=== PATIENT | female | born 1975 | race Caucasian/White ===

== ENCOUNTER 2017-02-05 00:48 | Emergency (ER) | payer SELFPAY ==
[~2017-02-05] VITALS: Ht 154.9 cm; Wt 72.0 kg
[~2017-02-05 00:48] MED LIST: ALBU0.63 NEB; CEFD300C2 PO; DOXY100T PO; PRED20TA PO
[2017-02-05 03:54] VITALS: BP 131/73
[2017-02-05] MEDS ORDERED: GABAPENTIN 100 MG CAPSULE PO ONE (04:00)
== END 2017-02-05 04:37 | disposition home or self-care (01) ==
LOC: ED 01:45
DX: G62.9 Polyneuropathy, unspecified (principal); F10.20 Alcohol dependence, uncomplicated
CPT/HCPCS: 71010; 99283

== ENCOUNTER 2017-02-05 21:22 | Emergency (ER) | payer SELFPAY ==
[~2017-02-05] VITALS: Ht 180.3 cm; Wt 73.3 kg
[2017-02-05 23:20] LABS: BLOOD UREA NITROGEN 16 mg/dL (7-18)
[2017-02-05 23:38] LABS: IS PT STATUS REG ER OR PRE ER? YES
[2017-02-06 01:37] VITALS: BP 112/58
== END 2017-02-06 02:02 | disposition home or self-care (01) ==
LOC: ED 23:59
DX: R55 Syncope and collapse (principal); J45.909 Unspecified asthma, uncomplicated; Z87.01 Personal history of pneumonia (recurrent)
CPT/HCPCS: 36415; 80048; 82040; 84484; 85025; 93005

== ENCOUNTER 2017-02-06 20:42 | Emergency (ER) | payer SELFPAY ==
[~2017-02-06] VITALS: Ht 180.3 cm; Wt 71.1 kg
[2017-02-06] MEDS ORDERED: SODIUM CHLORIDE FLUSH 10ML SYR IVF ONE (22:00)
[2017-02-06] MEDS ORDERED: OMNIPAQUE 350 MG/ML, 100ML BOTTLE ONE (22:18)
[2017-02-06 22:33] VITALS: BP 136/95
== END 2017-02-06 22:34 | disposition home or self-care (01) ==
LOC: ED 21:21
DX: R55 Syncope and collapse (principal); Z59.0 Homelessness
CPT/HCPCS: 70450; 71275; 93005; 99284; Q9967

== ENCOUNTER 2017-02-07 22:59 | Emergency (ER) | payer SELFPAY ==
[~2017-02-07] VITALS: Ht 180.3 cm; Wt 73.1 kg
[2017-02-07 23:07] VITALS: BP 124/84
== END 2017-02-08 00:59 | disposition home or self-care (01) ==
LOC: ED 23:59
DX: R55 Syncope and collapse (principal)
CPT/HCPCS: 36415; 80047; 93005

== ENCOUNTER 2017-02-16 16:21 | Emergency (ER) | payer SELFPAY ==
[~2017-02-16] VITALS: Ht 180.3 cm; Wt 74.0 kg
[~2017-02-16 16:21] MED LIST changes: -CEFD300C2 PO; +CEFD300C37 PO
[2017-02-16] MEDS ORDERED: SODIUM CHLORIDE FLUSH 10ML SYR IVF ONE (17:00)
[2017-02-16] MEDS ORDERED: MECLIZINE CHEWABLE 25 MG TAB PO ONE (17:00)
[2017-02-16] MEDS ORDERED: SODIUM CHLORIDE 0.9% 1,000ML IVBOLUS ONE (17:00)
[2017-02-16 17:28] LABS: ASPARTATE AMINO TRANSFERASE 29 U/L (15-37); BLOOD UREA NITROGEN 13 mg/dL (7-18)
[2017-02-16 17:37] LABS: IS PT STATUS REG ER OR PRE ER? YES
[2017-02-16] MEDS ORDERED: ALBUTEROL/IPRATROPIUM 2.5MG/0.5MG, 3 ML ONE ×2 (18:28→19:49)
[2017-02-16] MEDS ORDERED: ALBUTEROL/IPRATROPIUM 2.5MG/0.5MG, 3 ML NPPB ONE ×2 (18:30→19:30)
[2017-02-16] MEDS ORDERED: MECLIZINE CHEWABLE 25 MG TAB ONE (18:43)
[2017-02-16 20:16] VITALS: BP 124/75
== END 2017-02-16 20:21 | disposition home or self-care (01) ==
LOC: ED 20:15
DX: R42 Dizziness and giddiness (principal); J45.41 Moderate persistent asthma with (acute) exacerbation
CPT/HCPCS: 36415; 71020; 80053; 84484; 84703; 85025; 93005; 94640; 96361; 99285; J7030; J7512; J7620

== ENCOUNTER 2017-02-18 19:04 | Emergency (ER) | payer SELFPAY ==
[~2017-02-18] VITALS: Ht 180.3 cm; Wt 74.7 kg
[2017-02-18] MEDS ORDERED: SODIUM CHLORIDE 0.9% 1,000ML IVBOLUS ONE (19:30)
[2017-02-18] MEDS ORDERED: DIPH25CA61 PO (19:46)
[2017-02-18 20:05] VITALS: BP 97/64
== END 2017-02-18 20:07 | disposition home or self-care (01) ==
LOC: ED 19:30
DX: R55 Syncope and collapse (principal); J45.909 Unspecified asthma, uncomplicated
CPT/HCPCS: 93005; 99283

== ENCOUNTER 2017-02-20 21:22 | Emergency (ER) | payer SELFPAY ==
[~2017-02-20] VITALS: Ht 180.3 cm; Wt 72.8 kg
[~2017-02-20 21:22] MED LIST changes: +DIPH25CA61 PO
[2017-02-20 22:11] VITALS: BP 139/86
[2017-02-20] MEDS ORDERED: LORazepam 2 MG/ML, 1ML IVPush ONE (22:30)
[2017-02-20] MEDS ORDERED: METOCLOPRAMIDE 5 MG/ML, 2ML IVPush ONE (22:30)
[2017-02-20] MEDS ORDERED: ONDANSETRON 2MG/ML, 2ML IVPush ONE (22:30)
[2017-02-20] MEDS ORDERED: SODIUM CHLORIDE 0.9% 1,000ML IVBOLUS ONE (22:30)
[2017-02-20] MEDS ORDERED: SODIUM CHLORIDE FLUSH 10ML SYR IVF ONE (22:30)
[2017-02-20 22:31] LABS: BLOOD UREA NITROGEN 15 mg/dL (7-18)
[2017-02-20 22:37] LABS: ASPARTATE AMINO TRANSFERASE 33 U/L (15-37)
[2017-02-20 22:58] LABS: PATH.CAST-FLAG NOT PRESENT; SPERM-FLAG NOT PRESENT; SRC-FLAG NOT PRESENT; XTAL-FLAG NOT PRESENT; YLC-FLAG NOT PRESENT
== END 2017-02-20 23:55 | disposition left against medical advice (07) ==
LOC: ED 23:49
DX: F10.220 Alcohol dependence with intoxication, uncomplicated (principal); N30.00 Acute cystitis without hematuria
CPT/HCPCS: 36415; 80053; 80307; 81001; 83690; 84703; 85025; 87086; 99284

== ENCOUNTER 2017-02-26 01:04 | Emergency (ER) | payer SELFPAY ==
[~2017-02-26] VITALS: Ht 180.3 cm; Wt 70.5 kg
[2017-02-26 01:07] VITALS: BP 123/78
[2017-02-26] MEDS ORDERED: KETOROLAC 30 MG/1 ML IM ONE (02:00)
[2017-02-26] MEDS ORDERED: KETOROLAC 30 MG/1 ML ONE (02:10)
[2017-02-27] MEDS ORDERED: ALBU18HF INH (00:19)
[2017-02-27] MEDS ORDERED: BECL8.7A5 INH (00:20)
== END 2017-02-26 02:43 | disposition home or self-care (01) ==
LOC: ED 01:48
DX: Z00.00 Encounter for general adult medical examination without abnormal findings (principal)
CPT/HCPCS: 96372; 99283; J1885

== ENCOUNTER 2017-02-26 23:56 | Emergency (ER) | payer SELFPAY ==
[~2017-02-26] VITALS: Ht 177.8 cm; Wt 69.4 kg
[2017-02-26 23:58] VITALS: BP 119/80
[2017-02-27] MEDS ORDERED: ALBU18HF INH (00:19)
[2017-02-27] MEDS ORDERED: BECL8.7A5 INH (00:20)
[2017-02-27] MEDS ORDERED: ONDANSETRON ODT 4 MG ONE (00:35)
[2017-02-27] MEDS ORDERED: MAALOX/HYOSCYAMINE/LIDOCAINE 45 ML BOTTLE ONE (00:38)
[2017-02-27] MEDS ORDERED: MAALOX/HYOSCYAMINE/LIDOCAINE 45 ML BOTTLE PO ONE (01:00)
[2017-02-27] MEDS ORDERED: ALBUTEROL/IPRATROPIUM 2.5MG/0.5MG, 3 ML NPPB ONE (01:00)
[2017-02-27] MEDS ORDERED: SODIUM CHLORIDE 0.9% 1,000ML IVBOLUS ONE (01:00)
[2017-02-27] MEDS ORDERED: ONDANSETRON 2MG/ML, 2ML IVPush ONE (01:00)
[2017-02-27 01:01] LABS: ASPARTATE AMINO TRANSFERASE 35 U/L (15-37); BLOOD UREA NITROGEN 15 mg/dL (7-18)
== END 2017-02-27 01:56 | disposition home or self-care (01) ==
LOC: ED 23:59
DX: R19.7 Diarrhea, unspecified (principal); E86.9 Volume depletion, unspecified; E86.0 Dehydration
CPT/HCPCS: 36415; 80053; 85025; 94640; 96361; 96374; 99284; J2405; J7030; J7620

== ENCOUNTER 2017-03-01 03:14 | Emergency (ER) | payer SELFPAY ==
[~2017-03-01] VITALS: Ht 180.3 cm; Wt 73.6 kg
[~2017-03-01 03:14] MED LIST changes: +ALBU18HF INH; +BECL8.7A5 INH
[2017-03-01] MEDS ORDERED: ALBUTEROL SULFATE 2.5 MG/3 ML ONE (03:50)
[2017-03-01] MEDS ORDERED: SODIUM CHLORIDE 0.9% 1,000ML IVBOLUS ONE (04:00)
[2017-03-01] MEDS ORDERED: ALBUTEROL SULFATE 2.5 MG/3 ML NPPB ONE (04:00)
[2017-03-01 04:22] LABS: ASPARTATE AMINO TRANSFERASE 20 U/L (15-37); BLOOD UREA NITROGEN 10 mg/dL (7-18)
[2017-03-01 05:32] VITALS: BP 123/86
== END 2017-03-01 05:34 | disposition home or self-care (01) ==
LOC: ED 05:28
DX: J45.31 Mild persistent asthma with (acute) exacerbation (principal); R10.9 Unspecified abdominal pain
CPT/HCPCS: 36415; 71010; 80053; 81001; 83690; 85025; 94640; 99285; J7030; J7613

== ENCOUNTER 2017-03-03 03:32 | Emergency (ER) | payer SELFPAY ==
[~2017-03-03] VITALS: Ht 180.3 cm; Wt 72.1 kg
[2017-03-03 03:35] VITALS: BP 132/79
== END 2017-03-03 04:20 | disposition left against medical advice (07) ==
LOC: ED 04:15
DX: R07.89 Other chest pain (principal); Z53.21 Procedure and treatment not carried out due to patient leaving prior to being seen by health care provider

== ENCOUNTER 2017-03-18 22:40 | Emergency (ER) | payer SELFPAY ==
[~2017-03-18] VITALS: Ht 180.3 cm; Wt 71.8 kg
[2017-03-19] MEDS ORDERED: ONDANSETRON 2MG/ML, 2ML ONE (02:40)
[2017-03-19] MEDS ORDERED: SODIUM CHLORIDE 0.9% 1,000ML IVBOLUS ONE ×2 (03:00→04:00)
[2017-03-19] MEDS ORDERED: ONDANSETRON 2MG/ML, 2ML IVPush ONE (03:00)
[2017-03-19 03:09] LABS: ASPARTATE AMINO TRANSFERASE 43 U/L (15-37); BLOOD UREA NITROGEN 12 mg/dL (7-18)
[2017-03-19] MEDS ORDERED: POTASSIUM CHLORIDE 20 MEQ TAB.ER.PRT ONE (03:51)
[2017-03-19] MEDS ORDERED: POTASSIUM CHLORIDE 20 MEQ TAB.ER.PRT PO ONE (04:00)
[2017-03-19 05:00] VITALS: BP 124/80
== END 2017-03-19 05:05 | disposition home or self-care (01) ==
LOC: ED 23:59
DX: E86.0 Dehydration (principal); E87.6 Hypokalemia; R11.2 Nausea with vomiting, unspecified; R19.7 Diarrhea, unspecified; J45.909 Unspecified asthma, uncomplicated
CPT/HCPCS: 36415; 80053; 83690; 85025; 96361; 96374; 99285; J2405; J7030

== ENCOUNTER 2017-03-21 01:41 | Emergency (ER) | payer SELFPAY ==
[~2017-03-21] VITALS: Ht 180.3 cm; Wt 72.3 kg
[2017-03-21 01:42] VITALS: BP 148/96
[2017-03-21] MEDS ORDERED: ONDANSETRON ODT 4 MG ONE (02:23)
[2017-03-21] MEDS ORDERED: ACETAMINOPHEN 325 MG TABLET ONE (02:23)
[2017-03-21] MEDS ORDERED: ACETAMINOPHEN 325 MG TABLET PO ONE (02:30)
[2017-03-21] MEDS ORDERED: ONDANSETRON ODT 4 MG PO ONE (02:30)
== END 2017-03-21 02:40 | disposition home or self-care (01) ==
LOC: ED 02:17
DX: R11.2 Nausea with vomiting, unspecified (principal); R10.84 Generalized abdominal pain
CPT/HCPCS: 99283; Q0162

== ENCOUNTER 2017-03-23 23:12 | Emergency (ER) | payer SELFPAY ==
[~2017-03-23] VITALS: Ht 180.3 cm; Wt 70.4 kg
[2017-03-24] MEDS ORDERED: SODIUM CHLORIDE FLUSH 10ML SYR IVF ONE
[2017-03-24] MEDS ORDERED: ONDANSETRON 2MG/ML, 2ML IVPush ONE
[2017-03-24] MEDS ORDERED: ONDANSETRON 2MG/ML, 2ML ONE (00:03)
[2017-03-24 00:12] LABS: ASPARTATE AMINO TRANSFERASE 55 U/L (15-37); BLOOD UREA NITROGEN 6 mg/dL (7-18)
[2017-03-24 00:39] LABS: DIFF TOTAL CELLS COUNTED 100 CELL DIFF
[2017-03-24 00:48] LABS: VERIFY COUNTS? YES
[2017-03-24] MEDS ORDERED: SODIUM CHLORIDE 0.9% 1,000ML IVBOLUS ONE ×2 (01:00)
[2017-03-24 02:12] VITALS: BP 100/63
== END 2017-03-24 02:32 | disposition home or self-care (01) ==
LOC: ED 23:21
DX: R10.84 Generalized abdominal pain (principal); R11.2 Nausea with vomiting, unspecified; E86.0 Dehydration; G89.29 Other chronic pain; J45.909 Unspecified asthma, uncomplicated; F17.200 Nicotine dependence, unspecified, uncomplicated
CPT/HCPCS: 36415; 80053; 83690; 84703; 85025; 96361; 96374; 99285; J2405; J7030

== ENCOUNTER 2017-04-02 23:29 | Emergency (ER) | payer SELFPAY ==
[~2017-04-02] VITALS: Ht 180.3 cm; Wt 68.3 kg
[~2017-04-02 23:29] MED LIST changes: +AMOX1TAB64 PO; +LACT1CAP24 PO
[2017-04-03 00:39] LABS: ASPARTATE AMINO TRANSFERASE 32 U/L (15-37); BLOOD UREA NITROGEN 18 mg/dL (7-18)
[2017-04-03 01:22] VITALS: BP 93/53
== END 2017-04-03 01:31 | disposition home or self-care (01) ==
LOC: ED 23:59
DX: R10.84 Generalized abdominal pain (principal); R53.1 Weakness; R11.0 Nausea; F17.200 Nicotine dependence, unspecified, uncomplicated; J45.909 Unspecified asthma, uncomplicated
CPT/HCPCS: 36415; 80053; 83690; 85025; 99284

== ENCOUNTER 2017-10-11 09:53 | Inpatient (IN) | payer OTHER ==
[~2017-10-11] VITALS: Ht 180.3 cm; Wt 71.0 kg
[~2017-10-11 09:53] MED LIST changes: -BECL8.7A5 INH; +BECL8.7A7 INH
[2017-10-11] MEDS ORDERED: MAGNESIUM SULFATE PMX 2GM/50ML 50 ML IVPB ONE (10:00)
[2017-10-11] MEDS ORDERED: SODIUM CHLORIDE 0.9% 1,000ML IVBOLUS ONE (10:00)
[2017-10-11] MEDS ORDERED: SODIUM CHLORIDE FLUSH 10ML SYR IVF ONE (10:00)
[2017-10-11] MEDS ORDERED: methylPREDNISolone SOD SUCC 125 MG/2 ML ONE (10:10)
[2017-10-11] MEDS ORDERED: IBUPROFEN 200 MG TABLET ONE (10:15)
[2017-10-11 10:30] LABS: MEAN CORPUSCULAR HEMOGLOBIN 30.4 pg (27.0-34.8); MEAN CORPUSCULAR HGB CONC 33.2 g/dL (32.4-35.8); MEAN CORPUSCULAR VOLUME 91.4 fL (80-100); MEAN PLATELET VOLUME 8.4 fL (7.4-10.4); PLATELET COUNT 294 x10^3/uL (130-400); RED CELL DISTRIBUTION WIDTH 14.2 % (9.6-15.2)
[2017-10-11] MEDS ORDERED: MOME13HF2 INH (10:30)
[2017-10-11] MEDS ORDERED: DIPH25CA61 PO (10:30)
[2017-10-11] MEDS ORDERED: ALBU0.63 NEB (10:30)
[2017-10-11] MEDS ORDERED: methylPREDNISolone SOD SUCC 125 MG/2 ML IVP ONE (10:30)
[2017-10-11] MEDS ORDERED: IBUPROFEN 200 MG TABLET PO ONE (10:30)
[2017-10-11] MEDS ORDERED: ALBUTEROL/IPRATROPIUM 2.5MG/0.5MG, 3 ML ONE ×2 (10:34→10:57)
[2017-10-11 10:48] LABS: ALBUMIN 2.9 g/dL (3.4-5.0); ANION GAP 8 mmol/L (5-15); CALCIUM 8.6 mg/dL (8.5-10.1); CHLORIDE 98 mmol/L (98-107)
[2017-10-11 10:53] LABS: ALANINE AMINOTRANSFERASE 24 U/L (12-78); ALKALINE PHOSPHATASE 75 U/L (45-117); BILIRUBIN,TOTAL 0.3 mg/dL (0.2-1.0); CREATININE 0.96 mg/dL (0.55-1.02); TOTAL PROTEIN 8.8 g/dL (6.4-8.2)
[2017-10-11 10:56] LABS: TROPONIN I 0.286 ng/mL (0.000-0.045)
[2017-10-11 11:00] LABS: MD YES
[2017-10-11 11:02] LABS: LYMPH#(MANUAL) 2.04 x10^3/uL (1-3.4); LYMPHS% (MANUAL) 13 % (22-44); MONOS#(MANUAL) 2.51 x10^3/uL (0.3-2.7); MONOS% (MANUAL) 16 % (2-9)
[2017-10-11 11:03] LABS: BAND#(MANUAL) 3.14 x10^3/uL; BANDS%(MANUAL) 20 % (0-7); SEG#(MANUAL) 8.01 x10^3/uL (1.8-6.8); SEGS% (MANUAL) 51 % (42-75)
[2017-10-11 11:04] LABS: <PLATELET ESTIMATE> ADEQUATE; LARGE PLATELETS 1+; PMNS WITH VACUOLES 1+; POLYCHROMASIA 1+; TOXIC GRAN 1+
[2017-10-11] MEDS ORDERED: SODIUM CHLORIDE 0.9% 1,000 ML IV ONE (11:16)
[2017-10-11] MEDS ORDERED: SODIUM CHLORIDE FLUSH 10ML SYR IVF PRN (11:30)
[2017-10-11] MEDS: SODIUM CHLORIDE 0.9% 1,000 ML IV SCH ×2 (11:43→23:35)
[2017-10-11] MEDS ORDERED: ENALAPRILAT 1.25 MG/ML, 2ML IVPush PRN (12:00)
[2017-10-11] MEDS ORDERED: ONDANSETRON ODT 4 MG PO PRN (12:00)
[2017-10-11] MEDS ORDERED: CEFTRIAXONE PMX 2GM/50ML 50 ML ONE (12:12)
[2017-10-11] MEDS: CEFTRIAXONE PMX 2GM/50ML 50 ML IV SCH (12:22)
[2017-10-11 13:15] VITALS: BP 107/72
[2017-10-11] MEDS: AZITHROMYCIN 500 MG in SODIUM CHLORIDE 0.9% 250 ML IV SCH (13:28)
[2017-10-11] MEDS: NICOTINE 7 MG/24 HR PATCH.TD24 TD SCH (13:28)
[2017-10-11] MEDS: ENOXAPARIN 30 MG/0.3 ML SQ SCH (13:34)
[2017-10-11] MEDS: ALBUTEROL SULFATE 2.5 MG/3 ML NPPB SCH ×3 (15:00→23:47)
[2017-10-11] MEDS: methylPREDNISolone SOD SUCC 125 MG/2 ML IVPush SCH ×2 (17:19→23:35)
[2017-10-11 18:13] LABS: TROPONIN I 0.121 ng/mL (0.000-0.045)
[2017-10-11 20:58] VITALS: BP 96/68
[2017-10-12 02:10] VITALS: BP 103/73
[2017-10-12] MEDS: ENOXAPARIN 30 MG/0.3 ML SQ SCH ×2 (02:14→13:36)
[2017-10-12] MEDS: ALBUTEROL SULFATE 2.5 MG/3 ML NPPB SCH ×2 (02:55→07:12)
[2017-10-12 03:55] LABS: MICROSCOPIC AUTO
[2017-10-12 03:59] LABS: CULTURE INDICATED? NO
[2017-10-12] MEDS: methylPREDNISolone SOD SUCC 125 MG/2 ML IVPush SCH (05:41)
[2017-10-12 06:06] LABS: MEAN CORPUSCULAR HEMOGLOBIN 30.6 pg (27.0-34.8); MEAN CORPUSCULAR HGB CONC 32.8 g/dL (32.4-35.8); MEAN CORPUSCULAR VOLUME 93.5 fL (80-100); MEAN PLATELET VOLUME 8.6 fL (7.4-10.4); PLATELET COUNT 261 x10^3/uL (130-400); RED BLOOD COUNT 3.48 x10^6/uL (3.82-5.3); RED CELL DISTRIBUTION WIDTH 14.5 % (9.6-15.2)
[2017-10-12 06:15] LABS: CHLORIDE 100 mmol/L (98-107)
[2017-10-12 06:21] LABS: ALANINE AMINOTRANSFERASE 29 U/L (12-78); ALBUMIN 2.4 g/dL (3.4-5.0); ALKALINE PHOSPHATASE 81 U/L (45-117); ANION GAP 9 mmol/L (5-15); BILIRUBIN,TOTAL 0.2 mg/dL (0.2-1.0); CALCIUM 8.6 mg/dL (8.5-10.1); CREATININE 0.75 mg/dL (0.55-1.02); TOTAL PROTEIN 7.8 g/dL (6.4-8.2)
[2017-10-12 06:26] LABS: MD YES
[2017-10-12 06:28] LABS: BAND#(MANUAL) 2.21 x10^3/uL; BANDS%(MANUAL) 12 % (0-7); MONOS#(MANUAL) 0.37 x10^3/uL (0.3-2.7); MONOS% (MANUAL) 2 % (2-9); SEG#(MANUAL) 14.54 x10^3/uL (1.8-6.8); SEGS% (MANUAL) 79 % (42-75)
[2017-10-12 06:29] LABS: LYMPH#(MANUAL) 1.29 x10^3/uL (1-3.4); LYMPHS% (MANUAL) 7 % (22-44)
[2017-10-12 06:30] LABS: TOXIC GRAN 1+
[2017-10-12 06:31] LABS: <PLATELET ESTIMATE> ADEQUATE; LARGE PLATELETS 1+; PMNS WITH VACUOLES 1+; POLYCHROMASIA 1+
[2017-10-12 06:32] LABS: HYPOCHROMIA 1+
[2017-10-12 07:19] VITALS: BP 115/77
[2017-10-12 08:25] LABS: RAPID INFLUENZA A Negative (Negative); RAPID INFLUENZA B Negative (Negative)
[2017-10-12] MEDS ORDERED: ALBUTEROL/IPRATROPIUM 2.5MG/0.5MG, 3 ML ONE (09:30)
[2017-10-12] MEDS: SODIUM CHLORIDE 0.9% 1,000 ML IV SCH ×2 (09:47→22:36)
[2017-10-12] MEDS: ALBUTEROL/IPRATROPIUM 2.5MG/0.5MG, 3 ML NPPB SCH ×4 (09:50→22:42)
[2017-10-12] MEDS: CEFTRIAXONE PMX 2GM/50ML 50 ML IV SCH (12:32)
[2017-10-12] MEDS: NICOTINE 7 MG/24 HR PATCH.TD24 TD SCH (12:32)
[2017-10-12] MEDS: AZITHROMYCIN 500 MG in SODIUM CHLORIDE 0.9% 250 ML IV SCH (13:36)
[2017-10-12 14:17] VITALS: BP 104/70
[2017-10-12 18:40] VITALS: BP 122/79
[2017-10-12] MEDS ORDERED: OMNIPAQUE 350 MG/ML, 75ML BOTTLE ONE (22:31)
[2017-10-13] MEDS: ENOXAPARIN 30 MG/0.3 ML SQ SCH ×2 (00:24→13:40)
[2017-10-13 01:50] VITALS: BP 121/74
[2017-10-13] MEDS: ALBUTEROL/IPRATROPIUM 2.5MG/0.5MG, 3 ML NPPB SCH ×6 (03:00→21:57)
[2017-10-13 06:42] VITALS: BP 112/58
[2017-10-13] MEDS: SODIUM CHLORIDE 0.9% 1,000 ML IV SCH (08:48)
[2017-10-13] MEDS: GUAIFENESIN/DM 200-20MG, 10ML UDC PO PRN ×2 (09:27→17:25)
[2017-10-13] MEDS: CEFTRIAXONE PMX 2GM/50ML 50 ML IV SCH (13:12)
[2017-10-13] MEDS: NICOTINE 7 MG/24 HR PATCH.TD24 TD SCH (13:12)
[2017-10-13] MEDS: AZITHROMYCIN 500 MG in SODIUM CHLORIDE 0.9% 250 ML IV SCH (13:39)
[2017-10-13 13:41] VITALS: BP 145/71
[2017-10-13] MEDS: POTASSIUM CHLORIDE 20 MEQ PACKET PO SCH (17:23)
[2017-10-13 20:00] VITALS: BP 137/87
[2017-10-13] MEDS: CEFDINIR 300 MG CAPSULE PO SCH (20:36)
[2017-10-14 03:35] VITALS: BP 130/67
[2017-10-14] MEDS: ALBUTEROL/IPRATROPIUM 2.5MG/0.5MG, 3 ML NPPB SCH ×4 (03:54→19:20)
[2017-10-14] MEDS: GUAIFENESIN/DM 200-20MG, 10ML UDC PO PRN (05:47)
[2017-10-14 06:42] VITALS: BP 136/81
[2017-10-14] MEDS ORDERED: LORazepam 0.5MG TABLET PO PRN (07:30)
[2017-10-14] MEDS: ENOXAPARIN 40 MG/0.4 ML SQ SCH (09:08)
[2017-10-14] MEDS: CEFDINIR 300 MG CAPSULE PO SCH ×2 (09:08→20:45)
[2017-10-14] MEDS: ACETYLCYSTEINE 10%, 4ML NPPB SCH ×3 (10:40→19:20)
[2017-10-14] MEDS ORDERED: ALBUTEROL SULFATE 2.5 MG/3 ML NPPB PRN (11:00)
[2017-10-14] MEDS: NICOTINE 7 MG/24 HR PATCH.TD24 TD SCH (12:32)
[2017-10-14 13:26] VITALS: BP 139/87
[2017-10-14 14:11] LABS: HEMOGLOBIN A1C 6.1 % (4.2-6.3)
[2017-10-14] MEDS ORDERED: IPRATROPIUM 0.5 MG/2.5 ML INHA ONE (14:24)
[2017-10-14] MEDS ORDERED: ALBUTEROL SULFATE 2.5 MG/3 ML ONE (14:24)
[2017-10-14] MEDS: POTASSIUM CHLORIDE 20 MEQ PACKET PO SCH (17:04)
[2017-10-14 18:50] VITALS: BP 133/88
[2017-10-15 01:03] VITALS: BP 145/74
[2017-10-15 05:16] LABS: ALBUMIN 2.4 g/dL (3.4-5.0); ANION GAP 4 mmol/L (5-15); CALCIUM 8.3 mg/dL (8.5-10.1); CHLORIDE 102 mmol/L (98-107)
[2017-10-15 05:17] LABS: CREATININE 0.51 mg/dL (0.55-1.02)
[2017-10-15 07:32] VITALS: BP 134/72
[2017-10-15] MEDS: ENOXAPARIN 40 MG/0.4 ML SQ SCH (07:59)
[2017-10-15] MEDS: CEFDINIR 300 MG CAPSULE PO SCH ×2 (07:59→20:43)
[2017-10-15] MEDS: ALBUTEROL/IPRATROPIUM 2.5MG/0.5MG, 3 ML NPPB SCH ×4 (08:10→19:48)
[2017-10-15] MEDS: ACETYLCYSTEINE 10%, 10ML NPPB SCH ×4 (08:10→19:48)
[2017-10-15 12:32] VITALS: BP 128/69
[2017-10-15] MEDS: NICOTINE 7 MG/24 HR PATCH.TD24 TD SCH (13:07)
[2017-10-15] MEDS: POTASSIUM CHLORIDE 20 MEQ PACKET PO SCH (16:46)
[2017-10-15 18:46] VITALS: BP 127/79
[2017-10-16 03:46] VITALS: BP 163/96
[2017-10-16 05:04] LABS: MEAN CORPUSCULAR HEMOGLOBIN 30.3 pg (27.0-34.8); MEAN CORPUSCULAR HGB CONC 32.8 g/dL (32.4-35.8); MEAN CORPUSCULAR VOLUME 92.4 fL (80-100); MEAN PLATELET VOLUME 7.5 fL (7.4-10.4); PLATELET COUNT 422 x10^3/uL (130-400); RED BLOOD COUNT 3.47 x10^6/uL (3.82-5.3); RED CELL DISTRIBUTION WIDTH 15.2 % (9.6-15.2)
[2017-10-16 05:09] LABS: ALBUMIN 2.3 g/dL (3.4-5.0); ANION GAP 7 mmol/L (5-15); CALCIUM 8.3 mg/dL (8.5-10.1); CHLORIDE 105 mmol/L (98-107)
[2017-10-16 05:14] LABS: ALANINE AMINOTRANSFERASE 29 U/L (12-78); ALKALINE PHOSPHATASE 71 U/L (45-117); BILIRUBIN,TOTAL 0.1 mg/dL (0.2-1.0); CREATININE 0.53 mg/dL (0.55-1.02); TOTAL PROTEIN 6.3 g/dL (6.4-8.2)
[2017-10-16 06:03] LABS: BASOPHILS # (AUTO) 0.07 x10^3/uL (0-0.1); BASOPHILS % (AUTO) 1 % (0-1); EOSINOPHILS # (AUTO) 0.02 x10^3/uL (0-0.4); EOSINOPHILS % (AUTO) 0 % (1-7); LYMPHOCYTES # (AUTO) 2.51 x10^3/uL (1-3.4); LYMPHOCYTES % (AUTO) 17 % (22-44); MD SCAN; MONOCYTES # (AUTO) 0.28 x10^3/uL (0.2-0.8); MONOCYTES % (AUTO) 2 % (2-9); NEUTROPHILS # (AUTO) 12.13 x10^3/uL (1.8-6.8); NEUTROPHILS % (AUTO) 81 % (42-75)
[2017-10-16] MEDS: ACETYLCYSTEINE 10%, 10ML NPPB SCH (07:30)
[2017-10-16] MEDS: ALBUTEROL/IPRATROPIUM 2.5MG/0.5MG, 3 ML NPPB SCH ×3 (07:30→16:00)
[2017-10-16] MEDS: ENOXAPARIN 40 MG/0.4 ML SQ SCH (08:44)
[2017-10-16] MEDS: CEFDINIR 300 MG CAPSULE PO SCH (08:44)
[2017-10-16 08:50] VITALS: BP 126/69
[2017-10-16] MEDS: NICOTINE 7 MG/24 HR PATCH.TD24 TD SCH (12:00)
== END 2017-10-16 17:50 | disposition home or self-care (01) | DRG 189 ==
LOC: ED 11:15 → EDIP 11:16 → ED 11:25 → 4WST 12:59
PROVIDERS: ADMIT Internal Medicine; ATTEND Internal Medicine
DX: J96.00 Acute respiratory failure, unspecified whether with hypoxia or hypercapnia (principal); E43 Unspecified severe protein-calorie malnutrition; J18.9 Pneumonia, unspecified organism; J45.52 Severe persistent asthma with status asthmaticus; J44.0 Chronic obstructive pulmonary disease with (acute) lower respiratory infection; E87.1 Hypo-osmolality and hyponatremia; J44.1 Chronic obstructive pulmonary disease with (acute) exacerbation; Z68.21 Body mass index [BMI] 21.0-21.9, adult; E87.6 Hypokalemia; F12.90 Cannabis use, unspecified, uncomplicated; F17.200 Nicotine dependence, unspecified, uncomplicated; T38.0X5A Adverse effect of glucocorticoids and synthetic analogues, initial encounter
CPT/HCPCS: 36415; 71010; 71260; 80048; 80053; 81001; 82040; 83036; 83605; 83735; 84100; 84145; 84484; 85025; 86480; 87040; 87070; 87205; 87400; 93005; 94640; 96365; 96375; J0456; J0696; J1650; J7608; J7613; J7620; Q9967; J2930; J3475; J7030; J7050; J7512

== ENCOUNTER 2017-12-30 00:49 | Inpatient (IN) | payer MEDICAID, OTHER ==
[~2017-12-30] VITALS: Ht 182.9 cm; Wt 66.6 kg
[~2017-12-30 00:49] MED LIST changes: +ACET325T14 PO; +CYAN10005 PO; +FOLI-17 PO; +LEVO750T26 PO; +MOME13HF2 INH; +MULT1TAB60 PO; +NICO-485 TD
[2017-12-30] MEDS ORDERED: ALBUTEROL SULFATE 2.5 MG/3 ML ONE (01:18)
[2017-12-30] MEDS ORDERED: ALBUTEROL/IPRATROPIUM 2.5MG/0.5MG, 3 ML ONE (01:18)
[2017-12-30] MEDS ORDERED: SODIUM CHLORIDE 0.9% 1,000ML IVBOLUS ONE ×2 (01:30→02:30)
[2017-12-30] MEDS ORDERED: ALBUTEROL/IPRATROPIUM 2.5MG/0.5MG, 3 ML NPPB ONE (01:30)
[2017-12-30] MEDS ORDERED: ALBUTEROL SULFATE 2.5 MG/3 ML NPPB ONE (01:30)
[2017-12-30 01:56] LABS: MEAN CORPUSCULAR HEMOGLOBIN 30.2 pg (27.0-34.8); MEAN CORPUSCULAR HGB CONC 33.2 g/dL (32.4-35.8); MEAN CORPUSCULAR VOLUME 90.9 fL (80-100); MEAN PLATELET VOLUME 8.1 fL (7.4-10.4); PLATELET COUNT 167 x10^3/uL (130-400); RED BLOOD COUNT 4.03 x10^6/uL (3.82-5.3); RED CELL DISTRIBUTION WIDTH 14.2 % (9.6-15.2)
[2017-12-30 02:09] LABS: ALBUMIN 3.7 g/dL (3.4-5.0); ANION GAP 11 mmol/L (5-15); CALCIUM 8.5 mg/dL (8.5-10.1); CHLORIDE 106 mmol/L (98-107); MD YES
[2017-12-30 02:16] LABS: EOS#(MANUAL) 0.14 x10^3/uL (0.0-0.4); EOS% (MANUAL) 3 % (1-7); MONOS#(MANUAL) 0.36 x10^3/uL (0.3-2.7); MONOS% (MANUAL) 8 % (2-9); REACTIVE LYMPHS # (MANUAL) 0.05 x10^3/uL (0-0); REACTIVE LYMPHS % (MANUAL) 1 % (0-0)
[2017-12-30 02:17] LABS: ANISOCYTOSIS 1+
[2017-12-30 02:19] LABS: TARGET CELLS 1+
[2017-12-30 02:21] LABS: <PLATELET ESTIMATE> ADEQUATE; <PLT MORPHOLOGY> NORMAL PLT MORPH; TEAR DROPS 1+
[2017-12-30 02:25] LABS: BASOS#(MANUAL) 0.14 x10^3/uL (0-0.1); BASOS% (MANUAL) 3 % (0-1); LYMPH#(MANUAL) 2.12 x10^3/uL (1-3.4); LYMPHS% (MANUAL) 47 % (22-44); SEG#(MANUAL) 1.71 x10^3/uL (1.8-6.8); SEGS% (MANUAL) 38 % (42-75)
[2017-12-30] MEDS ORDERED: methylPREDNISolone SOD SUCC 125 MG/2 ML ONE (02:38)
[2017-12-30] MEDS ORDERED: methylPREDNISolone SOD SUCC 125 MG/2 ML IVPush SCH (03:00)
[2017-12-30] MEDS ORDERED: OMNIPAQUE 350 MG/ML, 100ML BOTTLE ONE (03:33)
[2017-12-30 03:51] LABS: RAPID INFLUENZA A Negative (Negative); RAPID INFLUENZA B Negative (Negative)
[2017-12-30 04:58] LABS: MICROSCOPIC INDICATED
[2017-12-30 04:59] LABS: CULTURE INDICATED? NO
[2017-12-30 05:18] LABS: AMPHETAMINE SCREEN, URINE Negative (Negative); BARBITURATE SCREEN, URINE Negative (Negative); BENZODIAZEPINE SCREEN, URINE Negative (Negative); CANNABINOID SCREEN, URINE Positive (Negative); COCAINE SCREEN, URINE Negative (Negative); METHADONE SCREEN, URINE Negative (Negative); OPIATE SCREEN, URINE Negative (Negative)
[2017-12-30] MEDS ORDERED: SODIUM CHLORIDE 0.9% 1,000 ML IV ONE (05:25)
[2017-12-30] MEDS ORDERED: LORazepam 2 MG/ML, 1ML IVPush ONE (05:30)
[2017-12-30] MEDS ORDERED: ONDANSETRON 2MG/ML, 2ML IVPush PRN ×2 (05:30→06:00)
[2017-12-30] MEDS ORDERED: LORazepam 2 MG/ML, 1ML ONE (05:49)
[2017-12-30] MEDS ORDERED: NS + 20MEQ KCL 1,000 ML IV SCH (05:50)
[2017-12-30] MEDS ORDERED: POLYETHYLENE GLYCOL 17 GM PACKET PO PRN (06:00)
[2017-12-30] MEDS ORDERED: LORazepam 1MG TABLET PO PRN (06:00)
[2017-12-30] MEDS ORDERED: DOCUSATE 100 MG CAPSULE PO PRN (06:00)
[2017-12-30] MEDS ORDERED: GUAIFENESIN/DM 200-20MG, 10ML UDC PO PRN (06:00)
[2017-12-30] MEDS: methylPREDNISolone SOD SUCC 125 MG/2 ML IVPush SCH ×3 (06:00→21:44)
[2017-12-30] MEDS ORDERED: ALBU1.25 NEB (06:04)
[2017-12-30 06:15] LABS: TROPONIN I < 0.015 ng/mL (0.000-0.045)
[2017-12-30 06:28] VITALS: BP 141/85
[2017-12-30] MEDS: METOPROLOL TARTRATE 25 MG TABLET PO SCH ×2 (06:39→17:30)
[2017-12-30] MEDS: NICOTINE 7 MG/24 HR PATCH.TD24 TD SCH (06:39)
[2017-12-30] MEDS: ENOXAPARIN 40 MG/0.4 ML SQ SCH (06:39)
[2017-12-30 07:19] VITALS: BP 141/85
[2017-12-30] MEDS ORDERED: ALBUTEROL SULFATE 2.5 MG/3 ML NPPB PRN (08:30)
[2017-12-30 13:39] VITALS: BP 134/83
[2017-12-30] MEDS: ACETAMINOPHEN 325 MG TABLET PO PRN (13:48)
[2017-12-30 19:12] VITALS: BP 150/84
[2017-12-30] MEDS: HYDROcodone/APAP 5/325 TABLET PO PRN (19:43)
[2017-12-30] MEDS: morphine SULFATE 10 MG/ML, 1ML IVPush PRN (21:56)
[2017-12-31 00:40] VITALS: BP 155/90
[2017-12-31] MEDS: morphine SULFATE 10 MG/ML, 1ML IVPush PRN (04:36)
[2017-12-31] MEDS: METOPROLOL TARTRATE 25 MG TABLET PO SCH (05:24)
[2017-12-31] MEDS: HYDROcodone/APAP 5/325 TABLET PO PRN (05:24)
[2017-12-31] MEDS: methylPREDNISolone SOD SUCC 125 MG/2 ML IVPush SCH (05:24)
[2017-12-31 05:26] VITALS: BP 137/83
[2017-12-31] MEDS: NICOTINE 7 MG/24 HR PATCH.TD24 TD SCH (05:26)
[2017-12-31] MEDS: ENOXAPARIN 40 MG/0.4 ML SQ SCH (05:26)
[2017-12-31 08:42] VITALS: BP 128/79
[2017-12-31] MEDS: ACETAMINOPHEN 325 MG TABLET PO PRN (08:50)
[2017-12-31] MEDS ORDERED: METO25TA35 PO (10:29)
[2017-12-31] MEDS ORDERED: ALBU90AE INH (10:29)
[2017-12-31] MEDS ORDERED: METH4TAB2 PO (10:29)
[2018-01-03] MEDS ORDERED: RISP1TAB45 PO (08:25)
== END 2017-12-31 11:34 | disposition home or self-care (01) | DRG 192 ==
LOC: ED 01:13 → EDIP 05:25 → 4EST 06:22
PROVIDERS: ADMIT Family Medicine; ATTEND Family Medicine
DX: J44.9 Chronic obstructive pulmonary disease, unspecified (principal); E87.6 Hypokalemia; F10.10 Alcohol abuse, uncomplicated; F12.10 Cannabis abuse, uncomplicated; R00.0 Tachycardia, unspecified; F17.200 Nicotine dependence, unspecified, uncomplicated; Z59.0 Homelessness; Z87.01 Personal history of pneumonia (recurrent)
CPT/HCPCS: 36415; 71046; 71275; 80048; 80307; 81001; 82040; 84484; 85025; 87400; 93005; 94640; J1650; J3480; J7613; J7620; Q9967; J2060; J2270; J2930; J7030

== ENCOUNTER 2018-01-17 11:28 | Emergency (ER) | payer MEDICAID ==
[~2018-01-17 11:28] MED LIST changes: +ALBU1.25 NEB; +ALBU90AE INH; +AZIT250T89 PO; +BECL8.7A6 INH; +IBUP-1222 PO; +METH4TAB2 PO; +METO25TA35 PO; +RISP1TAB45 PO
[2018-01-17 12:20] LABS: MEAN CORPUSCULAR HEMOGLOBIN 30.5 pg (27.0-34.8); MEAN CORPUSCULAR HGB CONC 33.7 g/dL (32.4-35.8); MEAN CORPUSCULAR VOLUME 90.4 fL (80-100); MEAN PLATELET VOLUME 7.2 fL (7.4-10.4); PLATELET COUNT 314 x10^3/uL (130-400); RED BLOOD COUNT 4.78 x10^6/uL (3.82-5.3); RED CELL DISTRIBUTION WIDTH 15.1 % (9.6-15.2)
[2018-01-17 12:25] LABS: ALANINE AMINOTRANSFERASE 32 U/L (12-78); ANION GAP 12 mmol/L (5-15); CALCIUM 8.2 mg/dL (8.5-10.1); CHLORIDE 107 mmol/L (98-107)
[2018-01-17 12:30] LABS: ALKALINE PHOSPHATASE 74 U/L (45-117); BILIRUBIN,TOTAL 0.6 mg/dL (0.2-1.0); CREATININE 0.66 mg/dL (0.55-1.02)
[2018-01-17 12:40] LABS: MD YES
[2018-01-17 12:41] LABS: BASOS#(MANUAL) 0.11 x10^3/uL (0-0.1); BASOS% (MANUAL) 2 % (0-1); LYMPH#(MANUAL) 2.13 x10^3/uL (1-3.4); LYMPHS% (MANUAL) 38 % (22-44); MONOS#(MANUAL) 0.11 x10^3/uL (0.3-2.7); MONOS% (MANUAL) 2 % (2-9); REACTIVE LYMPHS # (MANUAL) 0.22 x10^3/uL (0-0); REACTIVE LYMPHS % (MANUAL) 4 % (0-0); SEG#(MANUAL) 3.02 x10^3/uL (1.8-6.8); SEGS% (MANUAL) 54 % (42-75)
[2018-01-17 12:44] LABS: ANISOCYTOSIS 1+
[2018-01-17 12:45] LABS: <PLATELET ESTIMATE> ADEQUATE; <PLT MORPHOLOGY> NORMAL PLT MORPH; TARGET CELLS 1+
[2018-01-17 13:03] VITALS: BP 154/91
== END 2018-01-17 13:12 | disposition home or self-care (01) ==
LOC: ED 13:06
DX: F10.220 Alcohol dependence with intoxication, uncomplicated (principal); J44.9 Chronic obstructive pulmonary disease, unspecified; Z79.899 Other long term (current) drug therapy; F17.200 Nicotine dependence, unspecified, uncomplicated
CPT/HCPCS: 36415; 80053; 80307; 83690; 84703; 85025; 99284

== ENCOUNTER 2018-01-30 09:09 | Emergency (ER) | payer MEDICAID ==
[~2018-01-30] VITALS: Ht 180.3 cm; Wt 70.0 kg
[2018-01-30] MEDS ORDERED: SODIUM CHLORIDE FLUSH 10ML SYR IVF ONE (10:00)
[2018-01-30] MEDS ORDERED: SODIUM CHLORIDE 0.9% 1,000ML IVBOLUS ONE ×2 (10:00→11:30)
[2018-01-30 10:23] LABS: ANION GAP 14 mmol/L (5-15); CALCIUM 8.4 mg/dL (8.5-10.1); CHLORIDE 105 mmol/L (98-107)
[2018-01-30 10:30] LABS: ALANINE AMINOTRANSFERASE 134 U/L (12-78); ALKALINE PHOSPHATASE 119 U/L (45-117); BILIRUBIN,TOTAL 0.4 mg/dL (0.2-1.0); CREATININE 0.83 mg/dL (0.55-1.02); T4 (THYROXINE) 5.9 mcg/dL (4.8-13.9); TOTAL PROTEIN 7.8 g/dL (6.4-8.2)
[2018-01-30 10:33] LABS: MEAN CORPUSCULAR HEMOGLOBIN 30.2 pg (27.0-34.8); MEAN CORPUSCULAR HGB CONC 32.9 g/dL (32.4-35.8); MEAN CORPUSCULAR VOLUME 91.7 fL (80-100); MEAN PLATELET VOLUME 8.8 fL (7.4-10.4); PLATELET COUNT 145 x10^3/uL (130-400); RED BLOOD COUNT 4.15 x10^6/uL (3.82-5.3); RED CELL DISTRIBUTION WIDTH 15.4 % (9.6-15.2)
[2018-01-30 10:36] LABS: THYROID STIMULATING HORMONE 0.638 mIU/L (0.358-3.740)
[2018-01-30 10:45] LABS: MD YES
[2018-01-30 10:49] LABS: ANISOCYTOSIS 1+; EOS#(MANUAL) 0.06 x10^3/uL (0.0-0.4); EOS% (MANUAL) 1 % (1-7); LYMPH#(MANUAL) 1.01 x10^3/uL (1-3.4); LYMPHS% (MANUAL) 16 % (22-44); MONOS#(MANUAL) 0.32 x10^3/uL (0.3-2.7); MONOS% (MANUAL) 5 % (2-9); SEG#(MANUAL) 4.91 x10^3/uL (1.8-6.8); SEGS% (MANUAL) 78 % (42-75)
[2018-01-30 10:50] LABS: <PLATELET ESTIMATE> ADEQUATE; <PLT MORPHOLOGY> NORMAL PLT MORPH
[2018-01-30 11:27] LABS: MICROSCOPIC NOT IND
[2018-01-30 11:34] LABS: CULTURE INDICATED? NO
[2018-01-30 12:06] VITALS: BP 138/82
== END 2018-01-30 13:34 | disposition home or self-care (01) ==
LOC: ED 11:14
DX: E87.2 Acidosis (principal); E86.0 Dehydration; F10.10 Alcohol abuse, uncomplicated; J44.9 Chronic obstructive pulmonary disease, unspecified; R94.5 Abnormal results of liver function studies; Z59.0 Homelessness; Z72.89 Other problems related to lifestyle; Z91.14 Patient's other noncompliance with medication regimen; Z60.9 Problem related to social environment, unspecified
CPT/HCPCS: 36415; 71045; 76700; 80053; 81003; 83605; 83690; 83735; 84436; 84443; 84703; 85025; 93005; 96360; 96361; 99285; J7030

== ENCOUNTER 2018-02-13 16:56 | Emergency (ER) | payer MEDICAID ==
[~2018-02-13] VITALS: Ht 180.3 cm; Wt 65.0 kg
[2018-02-13] MEDS ORDERED: ALBUTEROL/IPRATROPIUM 2.5MG/0.5MG, 3 ML ONE (17:19)
[2018-02-13] MEDS ORDERED: methylPREDNISolone SOD SUCC 125 MG/2 ML IVP ONE (17:30)
[2018-02-13] MEDS ORDERED: ALBUTEROL/IPRATROPIUM 2.5MG/0.5MG, 3 ML NPPB ONE (17:30)
[2018-02-13] MEDS ORDERED: methylPREDNISolone SOD SUCC 125 MG/2 ML ONE (17:32)
[2018-02-13 18:07] LABS: ALBUMIN 3.7 g/dL (3.4-5.0); ANION GAP 9 mmol/L (5-15); CALCIUM 9.2 mg/dL (8.5-10.1); CHLORIDE 100 mmol/L (98-107); CREATININE 0.73 mg/dL (0.55-1.02)
[2018-02-13 18:11] LABS: TROPONIN I < 0.015 ng/mL (0.000-0.045)
[2018-02-13 18:22] LABS: MD YES; MEAN CORPUSCULAR HEMOGLOBIN 30.7 pg (27.0-34.8); MEAN CORPUSCULAR HGB CONC 32.9 g/dL (32.4-35.8); MEAN CORPUSCULAR VOLUME 93.2 fL (80-100); MEAN PLATELET VOLUME 7.7 fL (7.4-10.4); PLATELET COUNT 227 x10^3/uL (130-400); RED CELL DISTRIBUTION WIDTH 18.3 % (9.6-15.2)
[2018-02-13 18:26] LABS: ANISOCYTOSIS 1+; LYMPH#(MANUAL) 0.87 x10^3/uL (1-3.4); LYMPHS% (MANUAL) 15 % (22-44); MONOS#(MANUAL) 0.35 x10^3/uL (0.3-2.7); MONOS% (MANUAL) 6 % (2-9); SEG#(MANUAL) 4.58 x10^3/uL (1.8-6.8); SEGS% (MANUAL) 79 % (42-75)
[2018-02-13 18:28] LABS: <PLATELET ESTIMATE> ADEQUATE; LARGE PLATELETS 1+; TARGET CELLS 1+
[2018-02-13 19:58] VITALS: BP 152/88
== END 2018-02-13 20:00 | disposition home or self-care (01) ==
LOC: ED 18:59
DX: J45.41 Moderate persistent asthma with (acute) exacerbation (principal); F10.20 Alcohol dependence, uncomplicated; J44.9 Chronic obstructive pulmonary disease, unspecified; F17.200 Nicotine dependence, unspecified, uncomplicated; R07.89 Other chest pain; Z72.9 Problem related to lifestyle, unspecified; Z87.01 Personal history of pneumonia (recurrent); Z75.9 Unspecified problem related to medical facilities and other health care; Y90.9 Presence of alcohol in blood, level not specified
CPT/HCPCS: 36415; 71045; 80048; 82040; 84484; 85025; 93005; 94640; 96374; 99285; J2930; 99406; J7620